=== PATIENT | female | born 1960 | race Caucasian/White ===

== ENCOUNTER 2022-04-05 05:40 | Day surgery (SDC) | payer OTHER ==
[2022-04-02 09:29] VITALS: BMI 21.9
[2022-04-05] MEDS ORDERED: fentaNYL PF 100 MCG/2 ML SYRINGE ONE (06:02)
[2022-04-05] MEDS ORDERED: HYDROmorphone 2 MG/ML VIAL ONE (06:02)
[2022-04-05] MEDS ORDERED: Thrombin 5000 UNITS/5 ML VIAL ONE (06:10)
[2022-04-05] MEDS ORDERED: Bupivacaine HCl 0.5%/Epinephrine 1:200,000/PF 30 ml Vial ONE (06:10)
[2022-04-05] MEDS ORDERED: Sodium Chloride 0.9% 100 ML ONE ×2 (06:50→11:43)
[2022-04-05] MEDS ORDERED: CEFAZOLIN 2 GM VIAL ONE ×2 (06:50→11:43)
[2022-04-05] MEDS ORDERED: Ketamine 50 MG/ML (10ML VIAL) ONE (06:52)
[2022-04-05] MEDS ORDERED: Dexmedetomidine 200 MCG/2 ML VIAL ONE (06:53)
[2022-04-05] MEDS ORDERED: Rocuronium Bromide 10 MG/ML (10ML VIAL) ONE (07:25)
[2022-04-05] MEDS ORDERED: Ketorolac Tromethamine 30 MG/ML VIAL ONE (07:25)
[2022-04-05] MEDS ORDERED: PHENYLEPHRINE-NS 100 MCG/ML 10 ML SYRINGE ONE ×3 (07:25→08:57)
[2022-04-05] MEDS ORDERED: Dexamethasone 20 MG/5 ML VIAL ONE (07:25)
[2022-04-05] MEDS ORDERED: Ondansetron PF 4 MG/2 ML Vial ONE (07:25)
[2022-04-05] MEDS ORDERED: PROPOFOL 200 MG/20 ML VIAL ONE (07:25)
[2022-04-05] MEDS ORDERED: Lidocaine 1% PF 5 ML VIAL ONE (07:25)
[2022-04-05] MEDS ORDERED: SUGAMMADEX SODIUM 200 MG/2 ML VIAL ONE (09:07)
[2022-04-05] MEDS ORDERED: Fentanyl 100 MCG/2 ML VIAL ONE (09:57)
[2022-04-05] MEDS ORDERED: Promethazine HCl 25 MG/ML VIAL ONE (10:02)
== END 2022-04-05 13:58 | disposition home or self-care (01) ==
LOC: SDC 05:40
PROVIDERS: ATTEND Neurological Surgery
PROC: 0SG0071 Fusion of Lumbar Vertebral Joint with Autologous Tissue Substitute, Posterior Approach, Posterior Column, Open Approach (ICD-10-PCS; principal; 2022-04-05)
DX: M43.16 Spondylolisthesis, lumbar region (principal); M54.16 Radiculopathy, lumbar region; M48.062 Spinal stenosis, lumbar region with neurogenic claudication; M19.90 Unspecified osteoarthritis, unspecified site; Z87.891 Personal history of nicotine dependence
CPT/HCPCS: J1100; J1170; J1885; J2405; J2550; J2704; J3010; J3490

== ENCOUNTER 2022-04-21 04:02 | Inpatient (IN) | payer OTHER ==
[2022-04-21] MEDS ORDERED: Cefepime 2 GM VIAL ONE (04:57)
[2022-04-21] MEDS ORDERED: Morphine 4 MG/ML VIAL ONE (04:57)
[2022-04-21 05:19] LABS: INR-International Normal Ratio 1.1; Prothrombin Time 14.7 sec (12.0-14.7)
[2022-04-21 05:21] LABS: PTT 35.4 sec (22.9-36.1)
[2022-04-21] MEDS ORDERED: fentaNYL PF 100 MCG/2 ML SYRINGE ONE (08:42)
[2022-04-21] MEDS ORDERED: Iopamidol 370 76% 100 ML VIAL ONE (09:09)
[2022-04-21 09:30] LABS: SARS-CoV-2 NAA Rapid Test Not Detected (NotDetected)
[2022-04-21] MEDS ORDERED: Sodium Chloride 0.9% 100 ML ONE (09:42)
[2022-04-21] MEDS ORDERED: CEFAZOLIN 2 GM VIAL ONE (09:42)
[2022-04-21] MEDS ORDERED: Ketorolac Tromethamine 30 MG/ML VIAL ONE (09:55)
[2022-04-21] MEDS ORDERED: Ondansetron PF 4 MG/2 ML Vial ONE (09:55)
[2022-04-21] MEDS ORDERED: Lidocaine 1% PF 5 ML VIAL ONE (09:55)
[2022-04-21] MEDS ORDERED: PROPOFOL 200 MG/20 ML VIAL ONE (09:55)
[2022-04-21] MEDS ORDERED: NEOSTIGMINE 3 MG/3 ML SYR 3 MG/3 ML SYRINGE ONE (09:55)
[2022-04-21] MEDS ORDERED: Glycopyrrolate 0.2 MG/ML 5 ML SYRINGE ONE (09:55)
[2022-04-21] MEDS ORDERED: Rocuronium Bromide 10 MG/ML (10ML VIAL) ONE (09:55)
[2022-04-21] MEDS ORDERED: diphenhydrAMINE 25 MG CAP PO PRN (11:47)
[2022-04-21] MEDS ORDERED: Ondansetron PF 4 MG/2 ML Vial IVP PRN (11:47)
[2022-04-21] MEDS ORDERED: traMADol HCl 50 MG TAB PO PRN (11:47)
[2022-04-21] MEDS ORDERED: Acetaminophen 325 MG TAB PO PRN (11:47)
[2022-04-21] MEDS ORDERED: HYDROmorphone 2 MG/ML VIAL SLOW IVP PRN (11:57)
[2022-04-21] MEDS ORDERED: Ondansetron HCl/PF 4 MG/2 ML Vial IVP PRN (11:57)
[2022-04-21] MEDS ORDERED: Promethazine HCl 25 MG/ML VIAL IM PRN (11:57)
[2022-04-21] MEDS ORDERED: Morphine Sulfate 2 MG/ML SYRINGE SLOW IVP PRN (11:57)
[2022-04-21] MEDS ORDERED: PACU-Morphine 4MG/ML VIAL SLOW IVP PRN (11:57)
[2022-04-21] MEDS ORDERED: Fentanyl 100 MCG/2 ML VIAL ONE (12:07)
[2022-04-21] MEDS ORDERED: HYDROmorphone 0.5 MG/0.5 ML SYRINGE ONE (12:17)
[2022-04-21] MEDS: tiZANidine HCl 4 MG TAB PO PRN (13:52)
[2022-04-21] MEDS: metroNIDAZOLE 500 MG in Premix Bag 1 BAG IVPB SCH ×2 (13:52→22:56)
[2022-04-21] MEDS: Sodium Chloride 0.9% 1,000 ML IV SCH (13:53)
[2022-04-21 15:30] VITALS: BMI 21.9
[2022-04-21] MEDS: HYDROcodone/Acetaminophen 7.5/325 mg Tablet PO PRN ×2 (17:07→23:01)
[2022-04-21] MEDS: Vancomycin 1 GM in Premix Bag 1 BAG IVPB SCH (17:07)
[2022-04-21] MEDS: Acetaminophen/Codeine 30-300mg Tablet PO PRN (20:39)
[2022-04-21] MEDS: Cefepime 2 GM in Sodium Chloride 0.9% 100 ML IVPB SCH (20:41)
[2022-04-22] MEDS: HYDROcodone/Acetaminophen 7.5/325 mg Tablet PO PRN ×3 (04:34→20:31)
[2022-04-22] MEDS: Vancomycin 1 GM in Premix Bag 1 BAG IVPB SCH ×2 (04:37→16:43)
[2022-04-22] MEDS: Sodium Chloride 0.9% 1,000 ML IV SCH ×2 (04:41→14:40)
[2022-04-22] MEDS: Morphine 4 MG/ML VIAL SLOW IVP PRN ×3 (04:41→20:38)
[2022-04-22] MEDS: metroNIDAZOLE 500 MG in Premix Bag 1 BAG IVPB SCH ×3 (06:32→22:13)
[2022-04-22 06:38] LABS: #Eosinphils 0.2 thou/uL (0.0-0.7); #Lymphocytes 0.8 thou/uL (1.20-3.40); #Monocytes 1.1 thou/uL (0.11-0.59); #Neutrophils 10.1 thou/uL (1.40-6.50); %Basophils 0.2 % (0.0-1.0); %Eosinophils 1.3 % (0.0-10.0); %Lymphocytes 6.4 % (21.0-51.0); %Monocytes 9.2 % (0.0-10.0); Hemoglobin 9.1 g/dL (12.0-16.0); Mean Corpuscular HGB CONC 33.2 g/dL (32.0-36.0); Mean Corpuscular Volume 93.5 fl (78.0-98.0); Mean Platelet Volume 7.6 fL (7.4-10.4); Platelet Count 323 10x3/uL (130-400); RBC Distribution Width 11.6 % (11.5-14.5); Red Blood Cell (RBC) Count 2.92 mill/uL (4.20-5.40); White Blood Cell (WBC) Count 12.1 10x3/uL (4.8-10.8)
[2022-04-22 07:00] LABS: Anion Gap 11 mmol/L (10-20); BUN (Urea Nitrogen) 10 mg/dL (9.8-20.1); Calc. Creatinine Clearance 85 mL/min (70-130); Calcium 8.5 mg/dL (7.8-10.44); Carbon Dioxide 23 mmol/L (23-31); Chloride 105 mmol/L (98-107); Estimated GFR 102; Glucose 116 mg/dL (80-115); Potassium 3.4 mmol/L (3.5-5.1); Sodium 136 mmol/L (136-145)
[2022-04-22] MEDS: Cefepime 2 GM in Sodium Chloride 0.9% 100 ML IVPB SCH ×2 (08:39→20:31)
[2022-04-22] MEDS: tiZANidine HCl 4 MG TAB PO PRN ×2 (08:43→17:24)
[2022-04-22] MEDS: Acetaminophen/Codeine 30-300mg Tablet PO PRN ×3 (08:43→22:11)
[2022-04-22] MEDS ORDERED: FLU VACC QS2022-23(6MOS UP)/PF 60 MCG/0.5 ML SYRINGE IM ONE (09:00)
[2022-04-23] MEDS: HYDROcodone/Acetaminophen 7.5/325 mg Tablet PO PRN ×4 (01:59→23:50)
[2022-04-23] MEDS: Sodium Chloride 0.9% 1,000 ML IV SCH ×2 (04:46→17:35)
[2022-04-23 04:54] LABS: #Eosinphils 0.3 thou/uL (0.0-0.7); #Lymphocytes 1.1 thou/uL (1.20-3.40); #Neutrophils 7.2 thou/uL (1.40-6.50); %Basophils 0.2 % (0.0-1.0); %Lymphocytes 11.1 % (21.0-51.0); %Monocytes 10.7 % (0.0-10.0); Hemoglobin 8.7 g/dL (12.0-16.0); Mean Corpuscular HGB CONC 32.1 g/dL (32.0-36.0); Mean Corpuscular Volume 93.6 fl (78.0-98.0); Mean Platelet Volume 7.6 fL (7.4-10.4); Platelet Count 341 10x3/uL (130-400); RBC Distribution Width 11.7 % (11.5-14.5); Red Blood Cell (RBC) Count 2.88 mill/uL (4.20-5.40); White Blood Cell (WBC) Count 9.6 10x3/uL (4.8-10.8)
[2022-04-23] MEDS: Acetaminophen/Codeine 30-300mg Tablet PO PRN ×3 (04:56→19:38)
[2022-04-23] MEDS: tiZANidine HCl 4 MG TAB PO PRN ×2 (04:58→19:38)
[2022-04-23 05:12] LABS: Vancomycin, Trough 11.3 ug/mL
[2022-04-23 05:18] LABS: Anion Gap 8 mmol/L (10-20); BUN (Urea Nitrogen) 8 mg/dL (9.8-20.1); Calc. Creatinine Clearance 86 mL/min (70-130); Calcium 8.4 mg/dL (7.8-10.44); Carbon Dioxide 25 mmol/L (23-31); Chloride 108 mmol/L (98-107); Estimated GFR 102; Glucose 95 mg/dL (80-115); Potassium 3.3 mmol/L (3.5-5.1); Sodium 138 mmol/L (136-145)
[2022-04-23] MEDS: Vancomycin 1 GM in Premix Bag 1 BAG IVPB SCH (05:22)
[2022-04-23] MEDS: Vancomycin HCl 750 MG in Sodium Chloride 0.9% 250 ML 250 ML IVPB SCH ×3 (07:11→22:35)
[2022-04-23] MEDS: Cefepime 2 GM in Sodium Chloride 0.9% 100 ML IVPB SCH (08:39)
[2022-04-23] MEDS: Morphine 4 MG/ML VIAL SLOW IVP PRN (13:03)
[2022-04-24] MEDS: Acetaminophen/Codeine 30-300mg Tablet PO PRN ×4 (01:05→22:37)
[2022-04-24 05:59] LABS: #Eosinphils 0.3 thou/uL (0.0-0.7); #Lymphocytes 1.5 thou/uL (1.20-3.40); %Basophils 0.5 % (0.0-1.0); %Eosinophils 4.4 % (0.0-10.0); %Lymphocytes 19.1 % (21.0-51.0); %Monocytes 12.8 % (0.0-10.0); %Neutrophils 63.3 % (42.0-75.0); Hemoglobin 8.8 g/dL (12.0-16.0); Mean Corpuscular Hemoglobin 31.1 pg (27.0-31.0); Mean Corpuscular Volume 94.1 fl (78.0-98.0); Mean Platelet Volume 7.4 fL (7.4-10.4); Platelet Count 331 10x3/uL (130-400); RBC Distribution Width 11.8 % (11.5-14.5); Red Blood Cell (RBC) Count 2.83 mill/uL (4.20-5.40); White Blood Cell (WBC) Count 7.8 10x3/uL (4.8-10.8)
[2022-04-24 06:17] LABS: Anion Gap 9 mmol/L (10-20); BUN (Urea Nitrogen) 9 mg/dL (9.8-20.1); Calc. Creatinine Clearance 88 mL/min (70-130); Calcium 8.4 mg/dL (7.8-10.44); Carbon Dioxide 25 mmol/L (23-31); Chloride 109 mmol/L (98-107); Estimated GFR 103; Glucose 87 mg/dL (80-115); Potassium 3.4 mmol/L (3.5-5.1); Sodium 140 mmol/L (136-145)
[2022-04-24 06:27] LABS: Vancomycin, Trough 15.1 ug/mL
[2022-04-24] MEDS: Sodium Chloride 0.9% 1,000 ML IV SCH ×2 (06:27→23:41)
[2022-04-24] MEDS: HYDROcodone/Acetaminophen 7.5/325 mg Tablet PO PRN ×3 (06:30→18:28)
[2022-04-24] MEDS: Vancomycin HCl 750 MG in Sodium Chloride 0.9% 250 ML 250 ML IVPB SCH ×4 (08:48→18:30)
[2022-04-24] MEDS: tiZANidine HCl 4 MG TAB PO PRN ×2 (11:53→22:37)
[2022-04-25] MEDS: Vancomycin HCl 750 MG in Sodium Chloride 0.9% 250 ML 250 ML IVPB SCH ×3 (03:01→17:14)
[2022-04-25] MEDS: HYDROcodone/Acetaminophen 7.5/325 mg Tablet PO PRN ×2 (06:40→17:14)
[2022-04-25] MEDS: Sodium Chloride 0.9% 1,000 ML IV SCH (09:52)
[2022-04-25] MEDS: Acetaminophen/Codeine 30-300mg Tablet PO PRN ×2 (10:05→22:05)
[2022-04-25] MEDS: tiZANidine HCl 4 MG TAB PO PRN (21:58)
[2022-04-26] MEDS: Vancomycin HCl 750 MG in Sodium Chloride 0.9% 250 ML 250 ML IVPB SCH ×2 (02:53→10:42)
[2022-04-26 05:50] LABS: #Eosinphils 0.4 thou/uL (0.0-0.7); #Lymphocytes 1.4 thou/uL (1.20-3.40); #Monocytes 0.9 thou/uL (0.11-0.59); #Neutrophils 4.4 thou/uL (1.40-6.50); %Basophils 0.2 % (0.0-1.0); %Eosinophils 6.2 % (0.0-10.0); %Monocytes 12.1 % (0.0-10.0); %Neutrophils 61.4 % (42.0-75.0); Hemoglobin 8.4 g/dL (12.0-16.0); Mean Corpuscular HGB CONC 32.4 g/dL (32.0-36.0); Mean Corpuscular Hemoglobin 30.4 pg (27.0-31.0); Mean Corpuscular Volume 93.7 fl (78.0-98.0); Mean Platelet Volume 6.8 fL (7.4-10.4); Platelet Count 340 10x3/uL (130-400); RBC Distribution Width 11.8 % (11.5-14.5); Red Blood Cell (RBC) Count 2.78 mill/uL (4.20-5.40); White Blood Cell (WBC) Count 7.2 10x3/uL (4.8-10.8)
[2022-04-26 06:09] LABS: Anion Gap 9 mmol/L (10-20); BUN (Urea Nitrogen) 7 mg/dL (9.8-20.1); CRP (Inflammatory) 4.31 mg/dL (= or < 0.5); Calc. Creatinine Clearance 93 mL/min (70-130); Calcium 8.3 mg/dL (7.8-10.44); Carbon Dioxide 25 mmol/L (23-31); Chloride 107 mmol/L (98-107); Estimated GFR 104; Glucose 91 mg/dL (80-115); Potassium 2.9 mmol/L (3.5-5.1); Sodium 138 mmol/L (136-145)
[2022-04-26] MEDS: Acetaminophen/Codeine 30-300mg Tablet PO PRN (07:29)
[2022-04-26 08:08] VITALS: TEMP 98.5
[2022-04-26] MEDS: HYDROcodone/Acetaminophen 7.5/325 mg Tablet PO PRN ×2 (10:51→16:33)
[2022-04-26 12:09] VITALS: BP 138/74
[2022-04-26] MEDS: Sodium Chloride 0.9% 1,000 ML IV SCH ×2 (14:58)
== END 2022-04-26 16:20 | disposition home or self-care (01) | DRG 872 ==
LOC: ERS 04:02 → SDC 08:39 → SURG A 09:00 → OBSVTOIN 09:00
PROVIDERS: ADMIT Surgery; ATTEND Surgery
PROC: 0J970ZZ Drainage of Back Subcutaneous Tissue and Fascia, Open Approach (ICD-10-PCS; principal; 2022-04-21)
PROC: 02HV33Z Insertion of Infusion Device into Superior Vena Cava, Percutaneous Approach (ICD-10-PCS; 2022-04-24)
PROC: B548ZZA Ultrasonography of Superior Vena Cava, Guidance (ICD-10-PCS; 2022-04-24)
DX: A41.02 Sepsis due to Methicillin resistant Staphylococcus aureus (principal); L02.212 Cutaneous abscess of back [any part, except buttock and flank]; G89.4 Chronic pain syndrome; Z20.822 Contact with and (suspected) exposure to COVID-19; M19.90 Unspecified osteoarthritis, unspecified site; F41.9 Anxiety disorder, unspecified; F32.A Depression, unspecified; F17.210 Nicotine dependence, cigarettes, uncomplicated; Z90.49 Acquired absence of other specified parts of digestive tract; Z90.710 Acquired absence of both cervix and uterus; Z88.8 Allergy status to other drugs, medicaments and biological substances
CPT/HCPCS: 36415; 36569; 51798; 72132; 80048; 80202; 82565; 83605; 85025; 85610; 85652; 85730; 86140; 87040; 87070; 87077; 87186; 87205; 93970; 96365; 96366; 96375; 96376; C1751; G0378; J0692; J1170; J1885; J2270; J2405; J2704; J3010; J3370; J3370-JW; J3490; J7050; Q9967; U0002